=== PATIENT | female | born 1985 | race Caucasian/White ===

== ENCOUNTER 2022-01-10 13:40 | Emergency (ER) | payer OTHER ==
[~2022-01-10] VITALS: Ht 157.5 cm; Wt 61.0 kg
[2022-01-10 14:00] VITALS: BP 123/68
== END 2022-01-10 15:52 | disposition home or self-care (01) ==
LOC: ER 13:40
DX: S60.571A Other superficial bite of hand of right hand, initial encounter (principal); W50.3XXA Accidental bite by another person, initial encounter; Y93.89 Activity, other specified; Y92.89 Other specified places as the place of occurrence of the external cause; Y99.8 Other external cause status; Z77.21 Contact with and (suspected) exposure to potentially hazardous body fluids; Z00.00 Encounter for general adult medical examination without abnormal findings
CPT/HCPCS: 99281